=== PATIENT | female | born 1945 | race Hispanic/Latino ===

== ENCOUNTER 2016-11-17 14:27 | Emergency (ER) | payer MEDICARE, OTHER ==
[2016-11-17 14:33] VITALS: BMI 19.9
[2016-11-17 14:45] VITALS: TEMP 98.4
[2016-11-17] MEDS ORDERED: Albuterol-Ipratrop 3 mg / 0.5 (3 ml) UD IH STA (14:54)
--- NOTE | 2016-11-17 14:56 | ED PDOC ---
Arrival/HPI - General Chief Complaint: Shortness Of Breath Time Seen by Provider: 11/17/16 14:33 Historian: Patient - History of Present Illness Narrative History of Present Illness (Text): 11/17/16 14:53 70 year old female whose past medical history includes COPD (not on home O2 or pumps), arthritis, anxiety, hypertension, and hyperlipidemia presents to the emergency department with shortness of breath after being in a hot van with no air conditioning prior to arrival. Patient states she could not "catch her breath" and came to the ER for evaluation. Denies fever, cough, or recent illness. PMD: Dr. Andrade Time/Duration: Prior to Arrival Symptom Onset: Sudden Symptom Course: Unchanged Associated Symptoms (Text): None Past Medical History - Provider Review Nursing Documentation Reviewed: Yes - Infectious Disease Hx of Infectious Diseases: None - Tetanus Immunization Tetanus Immunization: Up to Date - Reproductive Menopause: Yes - Cardiac Hx Cardiac Arrhythmia: Yes (a fib during a cardiac cath) Hx Hypertension: Yes - Pulmonary Hx Chronic Obstructive Pulmonary Disease (COPD): Yes - Neurological Hx Migraine: Yes - HEENT Hx HEENT Disorder: (denies hx) - Renal Hx Renal Disorder: (denies hx) - Endocrine/Metabolic Hx Endocrine Disorders: (denies hx) - Hematological/Oncological Hx Blood Disorders: (denies hx) - Integumentary Hx Dermatological Disorder: (denies hx) - Musculoskeletal/Rheumatological Hx Arthritis: Yes Hx Back Pain: Yes - Gastrointestinal Hx Gastrointestinal Disorders: (denies hx) - Genitourinary/Gynecological Hx Genitourinary Disorders: (denies hx) - Psychiatric Hx Anxiety: Yes (was on xanax) Hx Substance Use: No - Past Surgical History Past Surgical History: No Previous - Surgical History Hx Cardiac Catheterization: Yes Hx Tonsillectomy: Yes - Anesthesia Hx Anesthesia Reactions: No Hx Malignant Hyperthermia: No - Suicidal Assessment Feels Threatened In Home Enviroment: No Family/Social History - Physician Review Nursing Documentation Reviewed: Yes Family/Social History: Unknown Family HX Smoking Status: Former Smoker Hx Alcohol Use: No Hx Substance Use: No Hx Substance Use Treatment: No Allergies/Home Meds Allergies/Adverse Reactions: Allergies codeine Allergy (Verified 11/17/16 14:33) ANAPHYLAXIS Home Medications: Home Meds Medication Instructions Recorded Confirmed Oxycodone HCl [Oxycodone HCl ER] 10 mg PO DAILY 11/17/16 11/17/16 Review of Systems - Physician Review All systems were reviewed & negative as marked: Yes - Review of Systems Constitutional: absent: Fevers Respiratory: SOB. absent: Cough Cardiovascular: absent: Chest Pain Physical Exam Vital Signs Reviewed: Yes Vital Signs Temp Pulse Resp BP Pulse Ox 11/17/16 16:46 98.4 F 75 20 145/88 100 11/17/16 16:09 78 18 153/91 H 100 11/17/16 14:43 18 11/17/16 14:39 98.4 F 114 H 18 153/89 H 99 Temperature: Afebrile Blood Pressure: Normal Pulse: Tachycardic Respiratory Rate: Normal Appearance: Positive for: Well-Appearing, Non-Toxic, Comfortable Pain Distress: None Mental Status: Positive for: Alert and Oriented X 3 - Systems Exam Head: Present: Atraumatic, Normocephalic Pupils: Present: PERRL Extroacular Muscles: Present: EOMI Conjunctiva: Present: Normal Mouth: Present: Moist Mucous Membranes Neck: Present: Normal Range of Motion Respiratory/Chest: Present: Clear to Auscultation, Decreased Breath Sounds (on the right). No: Respiratory Distress, Accessory Muscle Use, Wheezes Cardiovascular: Present: Regular Rate and Rhythm, Normal S1, S2. No: Murmurs Abdomen: Present: Normal Bowel Sounds. No: Tenderness, Distention, Peritoneal Signs Back: Present: Normal Inspection Upper Extremity: Present: Normal Inspection. No: Cyanosis, Edema Lower Extremity: Present: Normal Inspection. No: Edema Neurological: Present: GCS=15, CN II-XII Intact, Speech Normal Skin: Present: Warm, Dry, Normal Color. No: Rashes Psychiatric: Present: Alert, Oriented x 3, Normal Insight, Normal Concentration Medical Decision Making ED Course and Treatment: Impression: 70 year old female whose past medical history includes COPD (not on home O2 or pumps), arthritis, anxiety, hypertension, and hyperlipidemia presents to the emergency department with shortness of breath after being in a hot van with no air conditioning prior to arrival. Differential Diagnosis include but are not limited to: R/o pneumonia Plan: -- Chest X-ray -- CBC, CMP -- D-dimer -- Duoneb -- Reassess and disposition Prior Visits: Notes and results from previous visits were reviewed. Patient last seen in ED on 04/09/14 for cough and admitted to telemetry for observation. Progress Notes: Chest X-ray Credit Report Checker: Orestes Hernandez MD IMPRESSION: No active disease 11/17/16 16:34 On reevaluation patient states she feels better and is in no acute distress. Will discharge home with albuterol pump. Patient is stable for discharge. Patient was instructed to follow up with PMD in 1-2 days or return if symptoms persist/worsen or new concerning symptoms arise. 11/17/16 20:11 - Lab Interpretations Lab Results: 11/17/16 15:15 11/17/16 15:15 Lab Results 11/17/16 15:15: D-Dimer, Quantitative 0.48 11/17/16 15:15: Sodium 138, Potassium 3.7, Chloride 104, Carbon Dioxide 25, Anion Gap 13, BUN 16, Creatinine 0.7, Est GFR ( Amer) > 60, Est GFR (Non- Af Amer) > 60, Random Glucose 84, Calcium 9.4, Total Bilirubin 0.4, AST 29, ALT 21, Alkaline Phosphatase 87, Total Protein 8.0, Albumin 3.9, Globulin 4.0, Albumin/Globulin Ratio 1.0 L 11/17/16 15:15: WBC 7.4 D, RBC 4.07, Hgb 12.0, Hct 35.7 L, MCV 87.7, MCH 29.5, MCHC 33.6, RDW 13.6, Plt Count 289, MPV 9.7, Gran % 69.9 H, Lymph % (Auto) 16.5 L, Hardeman % (Auto) 6.8 H, Eos % (Auto) 6.3 H, Baso % (Auto) 0.5, Gran # 5.14, Lymph # 1.2, Hardeman # 0.5, Eos # 0.5, Baso # 0.04 - RAD Interpretation Radiology Orders: 11/17/16 14:54 CHEST TWO VIEWS (PA/LAT) [RAD] Stat - Medication Orders Current Medication Orders: Discontinued Medications Albuterol/Ipratropium (Duoneb 3 Mg/0.5 Mg (3 Ml) Ud) 3 ml IH STAT STA Stop: 11/17/16 14:55 Last Admin: 11/17/16 15:17 Dose: 3 ml - Scribe Statement The provider has reviewed the documentation as recorded by the Scribe Moses Ly Provider Negritaibe Attestation: All medical record entries made by the Omari were at my direction and personally dictated by me. I have reviewed the chart and agree that the record accurately reflects my personal performance of the history, physical exam, medical decision making, and the department course for this patient. I have also personally directed, reviewed, and agree with the discharge instructions and disposition. Disposition/Present on Arrival - Present on Arrival Any Indicators Present on Arrival: No History of DVT/PE: No History of Uncontrolled Diabetes: No Urinary Catheter: No History of Decub. Ulcer: No History Surgical Site Infection Following: None - Disposition Have Diagnosis and Disposition been Completed?: Yes Diagnosis: COPD (chronic obstructive pulmonary disease) Disposition: HOME/ ROUTINE Disposition Time: 16:00 Condition: IMPROVED Discharge Instructions (ExitCare): COPD (Chronic Obstructive Pulmonary Disease ) (ED) Additional Instructions: follow up with your primary doctor tomorrow for reevaluation return to the emergency department with any worsening or concerning symptoms. Prescriptions: Albuterol HFA [Ventolin HFA 90 mcg/actuation (8 g)] 1 - 2 puff IH Q4H PRN #1 bottle PRN Reason: Wheezing Referrals: Azam Andrade MD [Primary Care Provider] - Follow up with primary
[2016-11-17 15:21] LABS: ADD MANUAL DIFF? NO
[2016-11-17 15:26] LABS: BASO # 0.04 K/mm3 (0.0-2.0); BASO % 0.5 % (0.0-3.0); EOS # 0.5 (0.0-0.7); EOS % 6.3 % (1.5-5.0); GRAN # 5.14 (1.4-6.5); GRAN % 69.9 % (50.0-68.0); HEMATOCRIT 35.7 % (36.0-48.0); LYMPH # 1.2 (1.2-3.4); LYMPH % 16.5 % (22.0-35.0); MEAN CELL VOLUME 87.7 fL (80.0-105.0); MEAN CORPUSCULAR HEMOGLOBIN 29.5 pg (25.0-35.0); MEAN CORPUSCULAR HGB CONC 33.6 g/dl (31.0-37.0); MEAN PLATELET VOLUME 9.7 fl (7.0-11.0); MONO # 0.5 (0.1-0.6); MONO % 6.8 % (1.0-6.0); PLATELET COUNT 289 10^3/uL (120.0-450.0); RED CELL DISTRIBUTION WIDTH 13.6 % (11.5-14.5); WHITE BLOOD COUNT 7.4 10^3/ul (4.5-11.0)
[2016-11-17 15:35] LABS: GFR AFRICAN-AMERICAN > 60
[2016-11-17 16:12] VITALS: O2SAT 100
--- NOTE | 2016-11-17 16:13 | RAD ---
HISTORY: sob COMPARISON: 04/09/2014 TECHNIQUE: Chest PA and lateral FINDINGS: LUNGS: No active pulmonary disease. PLEURA: No significant pleural effusion identified. No pneumothorax apparent. CARDIOVASCULAR: Normal. OSSEOUS STRUCTURES: No significant abnormalities. VISUALIZED UPPER ABDOMEN: Normal. OTHER FINDINGS: None. IMPRESSION: No active disease.
[2016-11-17 16:34] LABS: ALKALINE PHOSPHATASE 87 U/L (38-133); ALT/SGPT 21 U/L (7-56); AST/SGOT 29 U/L (15-39); BILIRUBIN,TOTAL 0.4 mg/dL (0.2-1.3); BLOOD UREA NITROGEN 16 mg/dL (7-21); CALCIUM 9.4 mg/dL (8.4-10.5); CARBON DIOXIDE 25 mmol/L (21-33); CHLORIDE 104 mmol/L (98-107); GLUCOSE,RANDOM 84 mg/dL (70-110); POTASSIUM 3.7 mmol/L (3.6-5.0); SODIUM 138 mmol/L (132-148)
[2016-11-17 16:48] VITALS: BP 145/88; PULSE 75; RESP 20
--- NOTE | 2016-11-17 22:18 | CARD ---
APPROVED REPORT EKG Measurement Heart [id number] ND [id number] <Conclusion> Normal sinus rhythm Possible Left atrial enlargement Incomplete right bundle branch block Anteroseptal infarct, age undetermined Abnormal ECG
== END 2016-11-17 16:48 | disposition home or self-care (01) ==
LOC: ED 14:27
DX: J44.9 Chronic obstructive pulmonary disease, unspecified (principal); I10 Essential (primary) hypertension; E78.5 Hyperlipidemia, unspecified